=== PATIENT | female | born 1975 | race Caucasian/White ===

== ENCOUNTER 2017-01-23 08:46 | Emergency (ER) | payer OTHER ==
[~2017-01-23] VITALS: Ht 165.1 cm; Wt 90.9 kg
[~2017-01-23 08:46] MED LIST: ABILIFY10 MG PO; ABILIFY5 MG PO; ALLEGRA180 MG PO; ANAPROX DS550 M1 PO; APRESOLINE25 MG PO; ATARAX,VISTARIL25 MG PO; BENADRYL25 MG PO; BENTYL10 MG PO; BENTYL20 MG PO; BENZONATATE100 MG; BUSPAR15 MG PO; BUSPAR5 MG PO; BUSPIRONE HCL15 MG PO; CALAN80 MG PO; CELEBREX200 MG PO; CIPRO500 MG PO; CLONAZEPAM0.5 MG; CLONAZEPAM0.5 MG PO; CLOTRIMAZOLE-BE15 GM TP; Cipro PO; DESYREL100 MG PO; DICLOFENAC SODI75 MG PO; DICYCLOMINE HCL10 MG PO; EFFEXOR XR150 MG PO; EFFEXOR XR75 MG PO; EFFEXOR75 MG PO; ENDOCET 5-3251 EACH PO; ESCITALOPRAM OX20 MG PO; FLEXERIL10 MG PO; FLONASE16 G1 BOTH NARES; FLOVENT 22120 INHALA IH; FLUOXETINE HCL20 MG PO; GUIATUSS DM SY240 ML PO; GYNE-LOTRIMIN-745 GM VG; HYCODAN SYRUP480 ML PO; HYDROXYZINE PAM25 MG PO; Habitrol,Nicoderm CQ TD; IMITREX100 MG PO; IMITREX25 MG PO; IMODIUM A-D2 M1 PO; INDOCIN50 MG PO; Imitrex PO; KLONOPIN0.5 M1 PO; Klonopin PO; LEXAPRO10 MG PO; LEXAPRO20 MG PO; LIBRAX CAPSULE1 EACH PO; LODINE400 MG PO; LOMOTIL TABLET1 EACH PO; LOPERAMIDE2 M1 PO; Lotrisone TP; MACROBID100 MG PO; MIRTAZAPINE30 MG PO; MOBIC7.5 MG PO; MOTRIN800 MG PO; NAPROSYN500 MG PO; NAPROXEN500 MG PO; OMEPRAZOLE20 MG PO; ONDANSETRON ODT4 MG PO; PEPCID20 MG PO; PERCOCET 5/31 TABLET PO; PERCOCET PO; PHENERGAN12.5 M1 PO; PREDNISONE10 M1 PO; PREDNISONE20 MG PO; PROMETHAZINE HC25 M1; PROMETHAZINE HC25 M1 PO; PROVENTIL HFA6.7 GM IH; Percocet 5/325,Endoc PO; QUETIAPINE FUM100 MG PO; RANITIDINE HCL300 MG PO; REMERON30 M2 PO; SEROQUEL100 MG PO; SPRINTEC1 EACH PO; SUMATRIPTAN SU100 MG PO; TESSALON200 MG PO; TOPAMAX100 MG PO; TOPAMAX200 MG PO; TOPAMAX50 MG PO; TOPIRAMATE50 MG PO; TRAMADOL HCL50 MG PO; TRAZODONE HCL300 MG PO; TYLENOL REGULA325 MG PO; ULTRAM50 MG PO; VALIUM2 MG PO; VENTOLIN HFA18 GM IH; VERAPAMIL HCL80 MG PO; VITAMIN D5000 UNIT PO; ZANTAC150 MG PO; ZITHROMAX Z-PA250 MG PO; ZOFRAN ODT4 MG PO; ZOFRAN4 MG PO; ZYRTEC10 M3 PO
[2017-01-23] MEDS ORDERED: FIORICET WI1 CAPSULE PO (11:38)
[2017-01-23 12:07] VITALS: BP 128/92
== END 2017-01-23 12:09 | disposition home or self-care (01) ==
LOC: EME 08:46
DX: G43.909 Migraine, unspecified, not intractable, without status migrainosus (principal); F17.200 Nicotine dependence, unspecified, uncomplicated
CPT/HCPCS: 99281; 99284; J1885; J2765; J7030

== ENCOUNTER 2017-12-03 10:04 | Emergency (ER) | payer OTHER ==
[~2017-12-03] VITALS: Ht 165.1 cm; Wt 92.9 kg
[~2017-12-03 10:04] MED LIST changes: +FIORICET WI1 CAPSULE PO
[2017-12-03 10:12] VITALS: BP 115/76
[2017-12-03] MEDS ORDERED: FLEXERIL10 MG PO (11:30)
[2017-12-03] MEDS ORDERED: MOTRIN600 MG PO (11:30)
== END 2017-12-03 11:55 | disposition home or self-care (01) ==
LOC: EME 10:04
DX: S20.221A Contusion of right back wall of thorax, initial encounter (principal); M54.2 Cervicalgia; W19.XXXA Unspecified fall, initial encounter; Y99.0 Civilian activity done for income or pay; F17.200 Nicotine dependence, unspecified, uncomplicated
CPT/HCPCS: 99281; 99283